=== PATIENT | male | born 1995 | race Caucasian/White ===

== ENCOUNTER 2017-12-04 05:21 | Emergency (ER) | payer OTHER ==
[~2017-12-04] VITALS: Ht 170.2 cm; Wt 91.6 kg
[2017-12-04 05:25] VITALS: BP_SYST 137
[2017-12-04] MEDS ORDERED: ASPIRIN 81 MG TAB.CHEW PO ONE (06:00)
[2017-12-04 06:32] LABS: BASOPHILS # (AUTO) 0.2 K/uL (0.0-0.2); BASOPHILS % (AUTO) 2.1 % (0.0-2.0); EOSINOPHILS # (AUTO) 0.1 K/uL (0.0-0.4); EOSINOPHILS % (AUTO) 1.6 % (0.0-4.0); HEMATOCRIT 44.3 % (36-54); LYMPHOCYTES # (AUTO) 3.6 K/uL (1.0-5.5); LYMPHOCYTES % (AUTO) 48.8 % (20.5-51.5); MEAN CORPUSCULAR HEMOGLOBIN 29 pg (27-31); MEAN CORPUSCULAR HGB CONC 32 % (32-36); MEAN CORPUSCULAR VOLUME 92 fL (79.0-98.0); MONOCYTES # (AUTO) 0.5 K/uL (0.0-1.0); MONOCYTES % (AUTO) 6.5 % (1.7-9.3); NEUTROPHILS # (AUTO) 3.1 K/uL (1.8-7.7); PLATELET COUNT (AUTO) 310 K/uL (130-430); RED BLOOD CELL COUNT(AUTO) 4.82 MIL/uL (4.2-6.2); RED CELL DISTRIBUTION WIDTH 12.1 % (9.0-15.0); WHITE BLOOD COUNT (AUTO) 7.5 K/uL (4.8-10.8)
[2017-12-04 06:33] LABS: CALCIUM 9.3 mg/dL (8.4-11.0); CREATININE 0.95 mg/dL (0.55-1.30); POTASSIUM 3.7 mmol/L (3.5-5.1)
[2017-12-04 06:37] LABS: INR 0.9 (0.80-1.20); PROTHROMBIN TIME 9.5 SECS (9.5-12.5)
[2017-12-04 06:39] LABS: ALBUMIN 4.2 g/dL (3.4-4.8); TOTAL BILIRUBIN 0.2 mg/dL (0.0-1.0)
[2017-12-04 06:52] LABS: BILIRUBIN,URINE NEGATIVE (NEGATIVE); BLOOD, URINE NEGATIVE (NEGATIVE); CLARITY/URINE CLEAR (CLEAR); COLOR,URINE YELLOW (YELLOW); GLUCOSE,URINE NEGATIVE (NEGATIVE); KETONES,URINE NEGATIVE (NEGATIVE); LEUKOCYTE ESTERASE ,URINE NEGATIVE (NEGATIVE); NITRITE, URINE NEGATIVE (NEGATIVE); PROTEIN URINE NEGATIVE (NEGATIVE); UROBILINOGEN,URINE 0.2 (0.2-1.0)
[2017-12-04 07:15] LABS: BARBITURATE, URINE NEGATIVE (NEG <=200); BENZODIAZEPINE, URINE NEGATIVE (NEG <=150); CANNABINOID, URINE NEGATIVE (NEG <=50); COCAINE, URINE NEGATIVE (NEG <=150); METHAMPHETAMINES SCREEN,URINE NEGATIVE (NEG <=500); OPIATE, URINE NEGATIVE (NEG <=100); PHENCYCLIDINE SCREEN,URINE NEGATIVE (NEG <=25); UR TRICYCLIC ANTIDEPRESSANTS NEGATIVE (NEG <=300); URINE AMPHETAMINE NEGATIVE (NEG <=500); URINE METHADONE NEGATIVE (NEG <=200); URINE OXYCODONE SCREEN NEGATIVE (NEG <=100); URINE PROPOXYPHENE SCREEN NEGATIVE (NEG <=300)
[2017-12-04 07:32] VITALS: BP_SYST 137
== END 2017-12-04 07:32 | disposition home or self-care (01) ==
LOC: SED 05:21
DX: F41.9 Anxiety disorder, unspecified (principal); R07.89 Other chest pain; I10 Essential (primary) hypertension; E78.5 Hyperlipidemia, unspecified
CPT/HCPCS: 36415; 71045; 80053; 80307; 81003; 83690-TC; 83880; 84484; 85025; 85379; 85610-TC; 85730-TC; 99285

== ENCOUNTER 2017-12-08 19:30 | Emergency (ER) | payer OTHER ==
[~2017-12-08] VITALS: Ht 170.2 cm; Wt 91.2 kg
--- NOTE | 2017-12-08 19:37 | NUR ---
EKG done while patient was in triage room, patient currently denies CP/pressure.
[2017-12-08 19:40] VITALS: BP_SYST 145
--- NOTE | 2017-12-08 20:51 | NUR ---
called in, no answer
--- NOTE | 2017-12-08 20:52 | NUR ---
called in, no answer
--- NOTE | 2017-12-08 20:52 | NUR ---
called in, no answer
--- NOTE | 2017-12-08 20:52 | NUR ---
Patient left without being seen. No further treatment provided. ER MD aware
== END 2017-12-08 20:52 | disposition left against medical advice (07) ==
LOC: SED 19:30
DX: R07.89 Other chest pain (principal); Z53.21 Procedure and treatment not carried out due to patient leaving prior to being seen by health care provider
CPT/HCPCS: 93005; 99281